=== PATIENT | female | born 1965 | race African-American/Black ===

== ENCOUNTER → 2016-04-18 | Outpatient (CLI) | payer BC ==
[~2016-04-18] MED LIST: AMBIEN 10MG10 MG PO; AMOXICILLIN 8751 TAB PO; ANTIVERT 12.512.5 MG PO; CECLOR 250MG250 MG PO; CIPRO 250MG TA250 MG PO; CLEOCIN HC150 MG/CAP PO; DOXYCYCLINE 10100 MG PO; FIORICET 325 MG1 TA1 PO; FLAGYL500 MG PO; GLUCOPHAGE500 MG/TAB PO; IMITREX100 MG PO; JANUVIA50 MG PO; LEVAQUIN 750MG750 M1 PO; LORTAB 5/500 501 TAB PO; METFORMIN500 MG PO; METRONIDAZOLE500 MG PO; MILK OF MA400 MG/5 M PO; NO HOME MEDICATIONS; NORCO 325 MG-51 TAB PO; ORAL DIABETES MED; PHENERGAN 25 TA25 MG PO; PREDNISONE10 MG PO; TENORMIN 5050 MG/TAB PO; ULTRAM 50MG TAB50 MG PO; VERELAN120 MG PO; ZOFRAN8 MG PO; [UNRECOGNIZED DRUG - OTHER] PO
== END ==
LOC: COL.LAB 12:19
DX: Z32.00 Encounter for pregnancy test, result unknown (principal)

== ENCOUNTER 2018-12-08 20:34 | Emergency (ER) | payer BC ==
[~2018-12-08] VITALS: Ht 170.2 cm; Wt 86.4 kg
[2018-12-08 21:00] VITALS: TEMP 98.7
[2018-12-08] MEDS ORDERED: DIABETA 5MG5 MG/TAB PO (21:16)
[2018-12-08] MEDS ORDERED: NORCO 325 MG-51 TAB PO (21:17)
[2018-12-08] MEDS ORDERED: TYLENOL 325MG325 MG PO (21:18)
[2018-12-08 21:51] LABS: BASO # 0.1 (0.0-0.2); BASO % 0.7 % (0.0-2.0); EOS # 0.1 (0.0-0.7); EOS % 1.3 % (0-4.0); GRAN # 4.5 (1.4-6.5); HEMATOCRIT 42.2 % (37.0-47.0); HEMOGLOBIN 13.4 g/dl (12.5-16.0); LYMPH # 3.8 (1.2-3.4); LYMPH % 41.1 % (20.0-51.0); MEAN CELL VOLUME 87 fl (80.0-100.0); MEAN CORPUSCULAR HEMOGLOBIN 28 pg (27.0-31.0); MEAN CORPUSCULAR HGB CONC 32 g/dl (33.0-37.0); MEAN PLATELET VOLUME 12.6 fl (7.4-10.4); MONO # 0.7 (0.1-0.6); MONO % 7.6 % (1.7-9.3); PLATELET COUNT 229 K/mm3 (130-400); RED BLOOD COUNT 4.84 M/mm3 (4.10-5.30); REDCELL DISTRIBUTION WIDTH-CV 13.9 % (11.5-14.5)
[2018-12-08 22:06] LABS: CALCIUM 9.9 mg/dL (8.4-10.2); CREATININE, serum 0.78 (0.52-1.25); POTASSIUM 5.1 mmol/L (3.4-5.0)
[2018-12-09 00:03] LABS: COLLECTION METHOD CLEAN CATCH
[2018-12-09 00:12] LABS: PH 6 (5-8); SQUAMOUS EPITHELIAL 0-2 /hpf; URINE APPEARANCE Clear; URINE BACTERIA None Seen /hpf; URINE BILIRUBIN Negative (NEGATIVE); URINE BLOOD Negative (NEGATIVE); URINE COLOR Colorless; URINE GLUCOSE Negative (NEGATIVE); URINE KETONE Negative (NEGATIVE); URINE LEUKOCYTE ESTERASE Negative (NEGATIVE); URINE NITRATE Negative (NEGATIVE); URINE PROTEIN(semi-quant) Negative (NEGATIVE); URINE RBC 0-2 /hpf; URINE UROBILINOGEN Negative (NEGATIVE)
[2018-12-09 02:00] VITALS: PULSE 53
[2018-12-09] MEDS ORDERED: NORCO 325 MG-51 TAB PO (04:03)
[2018-12-09 04:18] VITALS: BP 131/81
== END 2018-12-09 04:25 | disposition home or self-care (01) ==
LOC: COL.ER 20:34
PROVIDERS: Physician Assistant
DX: G43.909 Migraine, unspecified, not intractable, without status migrainosus (principal); I16.0 Hypertensive urgency; I10 Essential (primary) hypertension; E11.9 Type 2 diabetes mellitus without complications; Z79.84 Long term (current) use of oral hypoglycemic drugs; Z79.891 Long term (current) use of opiate analgesic
CPT/HCPCS: J0360; J1200; J2060; J2270; J2405; J2765; J7030

== ENCOUNTER 2024-01-23 12:42 | Emergency (ER) | payer BC ==
[~2024-01-23] VITALS: Ht 170.2 cm; Wt 105.8 kg
[~2024-01-23 12:42] MED LIST changes: +DIABETA 5MG5 MG/TAB PO; +TYLENOL 325MG325 MG PO
[2024-01-23 13:01] VITALS: TEMP 97.5
[2024-01-23 14:08] LABS: COLLECTION METHOD CLEAN CATCH
[2024-01-23 14:23] LABS: URINE APPEARANCE CLEAR (CLEAR/HAZY); URINE BLOOD NEGATIVE (NEGATIVE); URINE COLOR YELLOW (YELLOW); URINE GLUCOSE 3+ (NEGATIVE); URINE KETONE NEGATIVE (NEGATIVE); URINE NITRATE NEGATIVE (NEGATIVE); URINE PROTEIN(semi-quant) NEGATIVE (NEGATIVE); URINE UROBILINOGEN 0.2 E.U/dL (0.2-1.0)
[2024-01-23] MEDS ORDERED: NS 1,000 ML IV ONE (14:45)
[2024-01-23 15:07] LABS: BASO # 0.1 K/mm3 (0.0-0.2); BASO % 0.7 % (0.0-2.0); EOS # 0.1 K/mm3 (0.0-0.7); EOS % 1.7 % (0.0-4.0); GRAN # 3.5 K/mm3 (1.4-6.5); GRAN % 45.3 % (42.2-75.2); HEMATOCRIT 39.3 % (37.0-47.0); HEMOGLOBIN 12.8 g/dl (12.5-16.0); LYMPH # 3.3 K/mm3 (1.2-3.4); LYMPH % 43.7 % (20.0-51.0); MEAN CELL VOLUME 87 fl (80.0-100.0); MEAN CORPUSCULAR HEMOGLOBIN 28 pg (27-31); MEAN CORPUSCULAR HGB CONC 33 g/dl (33.0-37.0); MEAN PLATELET VOLUME 12.3 fl (7.4-10.4); MONO # 0.6 K/mm3 (0.1-0.6); MONO % 8.3 % (1.7-9.3); PLATELET COUNT 227 K/mm3 (130-400); RED BLOOD COUNT 4.54 M/mm3 (4.10-5.30); REDCELL DISTRIBUTION WIDTH-CV 13.3 % (11.5-14.5)
[2024-01-23 15:34] LABS: ALBUMIN 3.8 g/dL (3.4-4.8); BILIRUBIN,TOTAL 0.3 mg/dL (0.2-1.2); C-REACTIVE PROTEIN 0.27 mg/dL (0.00-0.50); CALCIUM 9.7 mg/dL (8.4-10.2); CREATININE, serum 1.03 mg/dL (0.57-1.11); POTASSIUM 4.1 mEq/L (3.5-4.5); TOTAL PROTEIN 6.9 g/dl (6.2-8.1)
[2024-01-23] MEDS ORDERED: hydrALAZINE 20 MG/ML 1 ML VIAL IV ONE (16:30)
[2024-01-23] MEDS ORDERED: Iohexol 300 - 100 ML VIAL IV ONE (16:44)
[2024-01-23] MEDS ORDERED: NS 100 ML IV SCH (16:45)
[2024-01-23] MEDS ORDERED: AMOXICILLIN 8751 TAB PO (17:41)
[2024-01-23] MEDS ORDERED: NORCO 325 MG-51 TAB PO (17:41)
[2024-01-23 17:50] VITALS: BP 180/90; PULSE 70
== END 2024-01-23 17:58 | disposition home or self-care (01) ==
LOC: COL.ER 12:42
PROVIDERS: Emergency Medicine; Nurse Practitioner
DX: K57.32 Diverticulitis of large intestine without perforation or abscess without bleeding (principal); I10 Essential (primary) hypertension; Z79.82 Long term (current) use of aspirin
CPT/HCPCS: J0360; J7030; Q9967